=== PATIENT | male | born 1985 | race Caucasian/White ===

== ENCOUNTER 2017-05-16 13:57 | Inpatient (IN) | payer OTHER ==
[~2017-05-16] VITALS: Ht 180.3 cm; Wt 89.0 kg
[2017-05-16 14:49] LABS: HEMOGLOBIN 17.3 G/DL (12.5-16.6); MCHC 35.3 G/DL (30.0-36.0); MCV 84.9 FL (86-99); PLATELET COUNT 275 K/uL (156-360); RBC DIS.WIDTH-CV 12.2 % (11.8-14.6); RBC DIS.WIDTH-SD 37.1 % (39-53); RED BLOOD COUNT 5.77 M/uL (4.00-5.50); WHITE BLOOD COUNT 11.5 K/uL (4.1-10.2)
[2017-05-16 14:58] LABS: ALBUMIN 4.3 g/dL (3.2-4.8); CHLORIDE 101 mEq/L (99-109); POTASSIUM 4.4 mEq/L (3.7-5.4); SODIUM 136 mEq/L (136-147)
[2017-05-16 15:00] LABS: GLUCOSE 107 mg/dL (70-99); TOTAL PROTEIN 7.9 g/dL (6.4-8.3)
[2017-05-16 15:02] LABS: TOTAL BILIRUBIN 0.9 mg/dL (0.0-1.0)
[2017-05-16 15:03] LABS: SERUM ETHYL ALCOHOL < 10 mg/dL
[2017-05-16 15:04] LABS: ALKALINE PHOSPHATASE 94 IU/L (3-129); CREATININE 1.1 mg/dL (0.6-1.3); GFR ESTIMATE (CALCULATED) > 59 mL/min/ (58.99-99999)
[2017-05-16 15:05] LABS: UREA NITROGEN (BUN) 14 mg/dL (9-23)
[2017-05-16 15:06] LABS: AST (GOT) 17 IU/L (2-34)
[2017-05-16 15:07] LABS: ALT (GPT) 30 IU/L (3-49); CREATINE KINASE 71 IU/L (1-294)
[2017-05-16 15:19] LABS: ACETAMINOPHEN (TYLENOL) < 10 mcg/mL (10-30)
[2017-05-16] MEDS ORDERED: DESYREL100 MG PO (18:33)
[2017-05-16] MEDS ORDERED: FLUOXETINE HCL10 MG PO (18:33)
[2017-05-16] MEDS ORDERED: ATOMOXETINE HCL40 MG PO (18:34)
[2017-05-16] MEDS ORDERED: BUPROPION XL150 MG PO (18:34)
[2017-05-16] MEDS ORDERED: CITALOPRAM HBR20 MG PO (18:34)
[2017-05-16] MEDS ORDERED: QUETIAPINE FUM100 MG PO (18:35)
[2017-05-16] MEDS ORDERED: FLUOXETINE HCL20 MG PO (18:35)
[2017-05-16 19:36] LABS: APPEARANCE CLOUDY ((CLEAR)); BILIRUBIN NEGATIVE; BLOOD NEGATIVE; COLOR YELLOW ((YELLOW)); GLUCOSE (STRIP) NEGATIVE; KETONES NEGATIVE; LEUKOCYTES NEGATIVE; NITRITE NEGATIVE; PROTEIN (STRIP) NEGATIVE; SPECIFIC GRAVITY 1.017 (1.000-1.030); UROBILINOGEN 0.2 MG/DL (0.2-1.0)
[2017-05-16 19:45] LABS: BACTERIA NONE SEEN /HPF; EPITHELIAL CELLS NONE SEEN /HPF; MUCUS TRACE /LPF; RED BLOOD CELLS 0-5 /HPF (0-5); UCUL ADDED? NO; WHITE BLOOD CELLS 0-5 /HPF (0-5)
[2017-05-16 19:46] LABS: AMPHETAMINE NEGATIVE (500 ng/mL); BARBITURATES NEGATIVE (200 ng/mL); BENZODIAZEPINES PRESUMPTIVE POSITIVE (150 ng/mL); BUPRENORPHINE NEGATIVE (10 ng/mL); COCAINE NEGATIVE (150 ng/mL); METHADONE NEGATIVE (200 ng/mL); METHAMPHETAMINE NEGATIVE (500 ng/mL); OPIATES (MORPHINE) NEGATIVE (100 ng/mL); OXYCODONE NEGATIVE (100 ng/mL); PHENCYCLIDINE NEGATIVE (25 ng/mL); PROPOXYPHENE NEGATIVE (300 ng/mL); THC CANNABINOIDS NEGATIVE (50 ng/mL); TRICYCLIC ANTIDEPRESSANTS NEGATIVE (300 ng/mL)
[2017-05-16 20:21] VITALS: BP 129/88
[2017-05-16 20:33] LABS: BENZODIAZEPINES, URINE SCREEN Negative (200 ng/mL)
== END 2017-05-16 20:19 | disposition left against medical advice (07) | DRG 57 ==
LOC: EME 13:57 → EDOF 19:24 → ENRESERV 19:25 → EDOF 20:19
PROVIDERS: Emergency Medicine
DX: G25.89 Other specified extrapyramidal and movement disorders (principal); T50.995A Adverse effect of other drugs, medicaments and biological substances, initial encounter; F32.9 Major depressive disorder, single episode, unspecified; F11.10 Opioid abuse, uncomplicated; F10.10 Alcohol abuse, uncomplicated; F90.9 Attention-deficit hyperactivity disorder, unspecified type; F17.200 Nicotine dependence, unspecified, uncomplicated
CPT/HCPCS: 70450; 80053; 81003; 82550; 84999; 85027; 93005; 99281; 99285; G0480; J7030

== ENCOUNTER 2017-05-19 18:02 | Emergency (ER) | payer OTHER ==
[~2017-05-19] VITALS: Ht 182.9 cm; Wt 87.8 kg
[~2017-05-19 18:02] MED LIST: ATOMOXETINE HCL40 MG PO; BUPROPION XL150 MG PO; CITALOPRAM HBR20 MG PO; DESYREL100 MG PO; FLUOXETINE HCL10 MG PO; FLUOXETINE HCL20 MG PO; QUETIAPINE FUM100 MG PO
[2017-05-19 19:21] LABS: HEMATOCRIT 51.4 % (38.0-50.0); HEMOGLOBIN 18.3 G/DL (12.5-16.6); MCHC 35.6 G/DL (30.0-36.0); MCV 84.3 FL (86-99); PLATELET COUNT 302 K/uL (156-360); RBC DIS.WIDTH-CV 11.6 % (11.8-14.6); RBC DIS.WIDTH-SD 35.3 % (39-53); WHITE BLOOD COUNT 8.5 K/uL (4.1-10.2)
[2017-05-19 19:30] LABS: CHLORIDE 100 mEq/L (99-109); POTASSIUM 4.2 mEq/L (3.7-5.4); SODIUM 135 mEq/L (136-147)
[2017-05-19 19:31] LABS: GLUCOSE 99 mg/dL (70-99)
[2017-05-19 19:34] LABS: SERUM ETHYL ALCOHOL < 10 mg/dL
[2017-05-19 19:35] LABS: GFR ESTIMATE (CALCULATED) > 59 mL/min/ (58.99-99999)
[2017-05-19 19:36] LABS: UREA NITROGEN (BUN) 16 mg/dL (9-23)
[2017-05-19 20:03] LABS: CREATINE KINASE 133 IU/L (1-294)
[2017-05-19 21:30] VITALS: BP 144/85
== END 2017-05-19 21:35 | disposition home or self-care (01) ==
LOC: EME 18:02
DX: R56.9 Unspecified convulsions (principal); F32.9 Major depressive disorder, single episode, unspecified; F17.200 Nicotine dependence, unspecified, uncomplicated
CPT/HCPCS: 80048; 82550; 85027; 99281; 99285; G0480; J7030

== ENCOUNTER 2017-05-24 11:18 | Inpatient (IN) | payer OTHER ==
[~2017-05-24] VITALS: Ht 182.9 cm; Wt 87.8 kg
[2017-05-24 13:26] LABS: BASOPHIL (%) 0.2 % (0-1); EOSINOPHIL (%) 0.6 % (0-5); EOSINOPHIL COUNT 0.1 K/uL (0-0.3); HEMOGLOBIN 17.7 G/DL (12.5-16.6); IMMATURE GRANULOCYTE (%) 0.4 % (0.0-0.7); LYMPHOCYTE (%) 12.5 % (15-42); MCH 29.7 PG (29.0-34.0); MCHC 35.4 G/DL (30.0-36.0); MONOCYTE COUNT 0.5 K/uL (0-0.8); NEUTROPHIL (%) 80.3 % (45-76); NEUTROPHIL COUNT 6.7 K/uL (1.8-6.4); RBC DIS.WIDTH-CV 11.8 % (11.8-14.6); RBC DIS.WIDTH-SD 35.7 % (39-53); RED BLOOD COUNT 5.95 M/uL (4.00-5.50); WHITE BLOOD COUNT 8.3 K/uL (4.1-10.2)
[2017-05-24 14:06] LABS: PLAT.SUFFICIENCY ADEQUATE; PLATELET COUNT 220 K/uL (156-360)
[2017-05-24 14:09] LABS: ALBUMIN 4.3 g/dL (3.2-4.8); CHLORIDE 101 mEq/L (99-109); POTASSIUM 3.9 mEq/L (3.7-5.4); SODIUM 135 mEq/L (136-147)
[2017-05-24 14:12] LABS: GLUCOSE 90 mg/dL (70-99); TOTAL PROTEIN 7.8 g/dL (6.4-8.3)
[2017-05-24 14:14] LABS: SERUM ETHYL ALCOHOL < 10 mg/dL
[2017-05-24 14:15] LABS: ALKALINE PHOSPHATASE 83 IU/L (3-129); GFR ESTIMATE (CALCULATED) > 59 mL/min/ (58.99-99999)
[2017-05-24 14:16] LABS: UREA NITROGEN (BUN) 13 mg/dL (9-23)
[2017-05-24 14:17] LABS: AST (GOT) 13 IU/L (2-34)
[2017-05-24 14:18] LABS: ALT (GPT) 15 IU/L (3-49); CREATINE KINASE 35 IU/L (1-294)
[2017-05-24] MEDS ORDERED: DESYREL100 MG PO (17:07)
[2017-05-24] MEDS ORDERED: FLUOXETINE HCL10 MG PO (17:07)
[2017-05-24] MEDS ORDERED: PRAZOSIN HCL1 MG PO (17:07)
[2017-05-24] MEDS ORDERED: SEROQUEL100 MG PO (17:07)
[2017-05-24] MEDS ORDERED: WELLBUTRIN XL150 MG PO (17:07)
[2017-05-24 17:42] LABS: MAGNESIUM 2.2 mg/dL (1.3-2.7)
[2017-05-24 18:26] VITALS: BP 116/75
[2017-05-24 18:49] LABS: THYROTROPIN (TSH) 1.3 MIU/L (0.4-5.5)
[2017-05-24 19:32] VITALS: BP 131/75
[2017-05-24 19:48] LABS: APPEARANCE CLEAR ((CLEAR)); BILIRUBIN NEGATIVE; BLOOD NEGATIVE; COLOR STRAW ((YELLOW)); GLUCOSE (STRIP) NEGATIVE; KETONES NEGATIVE; LEUKOCYTES NEGATIVE; NITRITE NEGATIVE; PROTEIN (STRIP) NEGATIVE; SPECIFIC GRAVITY 1.005 (1.000-1.030); UCUL ADDED? NO; UROBILINOGEN 0.2 MG/DL (0.2-1.0)
[2017-05-24 20:21] LABS: AMPHETAMINE NEGATIVE (500 ng/mL); BARBITURATES NEGATIVE (200 ng/mL); BENZODIAZEPINES NEGATIVE (150 ng/mL); BUPRENORPHINE NEGATIVE (10 ng/mL); COCAINE NEGATIVE (150 ng/mL); METHADONE NEGATIVE (200 ng/mL); METHAMPHETAMINE NEGATIVE (500 ng/mL); OPIATES (MORPHINE) NEGATIVE (100 ng/mL); OXYCODONE NEGATIVE (100 ng/mL); PHENCYCLIDINE NEGATIVE (25 ng/mL); PROPOXYPHENE NEGATIVE (300 ng/mL); THC CANNABINOIDS NEGATIVE (50 ng/mL); TRICYCLIC ANTIDEPRESSANTS NEGATIVE (300 ng/mL)
[2017-05-24 23:21] VITALS: BP 115/69
[2017-05-25 03:39] VITALS: BP 114/61
[2017-05-25 08:39] VITALS: BP 118/74
[2017-05-25 16:29] VITALS: BP 120/79
[2017-05-25 19:41] VITALS: BP 124/80
[2017-05-25 23:55] VITALS: BP 113/57
[2017-05-26 08:19] VITALS: BP 107/59
[2017-05-26 15:38] VITALS: BP 109/61
[2017-05-26] MEDS ORDERED: KEPPRA500 MG PO (15:40)
[2017-05-26] MEDS ORDERED: MIRTAZAPINE15 MG PO (15:41)
== END 2017-05-26 16:40 | disposition home or self-care (01) | DRG 100 ==
LOC: EME 11:18 → 3EAST 16:20 → EDOF 16:20 → ENRESERV 16:23 → 3EAST 18:11
PROVIDERS: Emergency Medicine; Family Medicine
DX: G40.409 Other generalized epilepsy and epileptic syndromes, not intractable, without status epilepticus (principal); F17.210 Nicotine dependence, cigarettes, uncomplicated; I42.2 Other hypertrophic cardiomyopathy; R25.1 Tremor, unspecified; R26.9 Unspecified abnormalities of gait and mobility; G93.40 Encephalopathy, unspecified; R51 Headache; F32.9 Major depressive disorder, single episode, unspecified; F41.8 Other specified anxiety disorders; F90.9 Attention-deficit hyperactivity disorder, unspecified type; Z86.73 Personal history of transient ischemic attack (TIA), and cerebral infarction without residual deficits
CPT/HCPCS: 70553; 80053; 81003; 82140; 82550; 82607; 83735; 84443; 85025; 93005; 95819; 99281; 99285; G0480; J1650; J1885; J1953; J7030; J7050